=== PATIENT | female | born 1985 | race Caucasian/White ===

== ENCOUNTER 2019-09-22 21:20 | Emergency (ER) | payer OTHER ==
--- NOTE | 2019-09-22 23:22 | EDM.PDOC ---
ED HPI GENERAL MEDICAL PROBLEM - General Chief Complaint: Abdominal Pain Stated Complaint: lower left groin area pain Time Seen by Provider: 09/22/19 22:48 Source of Information: Reports: Patient, Family (Mother) History Limitations: Reports: No Limitations - History of Present Illness INITIAL COMMENTS - FREE TEXT/NARRATIVE: Ms. Verdugo is a pleasant 33-year-old woman with past medical history significant only for untreated dyslipidemia, who states that she developed left groin pain when she stood up around 20:00 this evening. The area is tender to palpation, and she believes that she feels something is swollen in there. She reports having chills and nausea tonight, but no recent fever, cough, chest pain , palpitations, vomiting, consultation, diarrhea, or urinary symptoms. No prior similar symptoms. The patient did not take any [id number] or home remedies prior to coming to the ED. The patient's PCP is Beatris Snyder NP. She did not receive an influenza vaccine this season, and declined an offer for one tonight. Treatments REHANGER: Reports: Other (see below) Other Treatments REHANGER: none Left Groin Pain Score (Numeric/FACES): 4 - Related Data Allergies Allergy/AdvReac Type Severity Reaction Status Date / Time amoxicillin Allergy Nausea Verified 09/22/19 21:34 Home Meds: Home Meds Oseltamivir [Tamiflu] 1 cap PO Q12H #7 cap 09/23/19 [Rx] Past Medical History Cardiovascular History: Reports: High Cholesterol (untreated) - Past Surgical History HEENT Surgical History: Reports: Oral Surgery (dental extractions) Female Surgical History: Reports: Section (x 1), D&C (x 1) Social & Family History - Tobacco Use Smoking Status *Q: Never Smoker - Caffeine Use Caffeine Use: Reports: Coffee, Soda - Alcohol Use Alcohol Use History: Yes Alcohol Use Frequency: Rarely - Recreational Drug Use Recreational Drug Use: No - Living Situation & Occupation Living situation: Reports: , with Spouse, with Family (4 kids) 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 ED EXAM, GENERAL - Physical Exam Exam: See Below Exam Limited By: No Limitations General Appearance: Alert, WD/WN, No Apparent Distress Eye Exam: Bilateral Eye: EOMI, Normal Inspection Ears: Normal External Exam, Hearing Grossly Normal Nose: Normal Inspection Throat/Mouth: Normal Inspection, Normal Lips, Normal Voice, No Airway Compromise Head: Atraumatic, Normocephalic Neck: Normal Inspection, Full Range of Motion Respiratory/Chest: No Respiratory Distress, Lungs Clear, Normal Breath Sounds, No Accessory Muscle Use Cardiovascular: Normal Peripheral Pulses, Regular Rate, Rhythm, No Edema, No Gallop, No JVD, No Murmur, No Rub Peripheral Pulses: 4+: Radial (L), Radial (R) GI/Abdominal: Normal Bowel Sounds, Soft, Non-Tender (including the LLQ), No Organomegaly, No Distention, No Abnormal Bruit, No Mass (Female) Exam: Deferred Rectal (Female) Exam: Deferred Back Exam: Normal Inspection, Full Range of Motion, NT Extremities: Normal Inspection, Normal Range of Motion, No Pedal Edema, Normal Capillary Refill, Other (Mild tenderness to palpation of the left proximal anterior thigh (groin), but only normal-sized inguinal lymph nodes palpated, no enlarged lymph nodes.) Neurological: Alert, Oriented, Normal Cognition, No Motor/Sensory Deficits Psychiatric: Normal Affect Skin Exam: Warm (feels febrile), Dry, Intact, Normal Color, No Rash Course - Vital Signs Last Recorded V/S: Last Vital Signs Temp 37.9 C 09/22/19 23:30 Pulse 103 H 09/22/19 21:36 Resp 20 09/22/19 21:36 BP 129/74 09/22/19 21:36 Pulse Ox 100 09/22/19 21:36 - Orders/Labs/Meds Labs: Laboratory Tests 09/22/19 Range/Units 22:00 Urine Color Leticia H (Yellow) Urine Appearance Slt cloudy H (Clear) Urine pH 6.0 (5.0-8.0) Ur Specific [place] > or = 1.030 (1.005-1.030) Urine Protein Negative (Negative) Urine Glucose (UA) Negative (Negative) Urine Ketones 1+ H (Negative) Urine Occult Blood Negative (Negative) Urine Nitrite Negative (Negative) Urine Bilirubin Negative (Negative) Urine Urobilinogen 1.0 (0.2-1.0) Ur Leukocyte Esterase Negative (Negative) Urine RBC 0-5 (0-5) /hpf Urine WBC 0-5 (0-5) /hpf Ur Squamous Epith Cells 10-20 H (0-5) /hpf Amorphous Sediment Few H (NOT SEEN) /hpf Urine Bacteria Moderate H (FEW) /hpf Urine Mucus Many H (FEW) /hpf Meds: Medications Discontinued Medications Generic Name Dose Route Start Last Admin Trade Name Cheryle PRN Reason Stop Dose Admin Oseltamivir Phosphate 225 mg 09/23/19 00:14 09/23/19 00:31 Tamiflu PO 09/23/19 00:15 225 mg ONETIME STA Administration - Re-Assessments/Exams Free Text/Narrative Re-Assessment/Exam: 09/22/19 23:18 I can feel a few normal-sized inguinal lymph nodes in the patient's left groin, and while she has some tenderness in the area, I do not suspect it is lymphatic. I suspect that her pain is due to a muscle or tendon strain. While I was examining the patient, however, I noticed that she felt warm. I had Carolynn BAHENA recheck her temperature, finding it to be up to 100.3 - it was 98.8 at triage. The patient has no obvious signs of an infection - no cough, dyspnea, abdominal pain, vomiting, diarrhea, or urinary symptoms, however, it is possible that the patient is now developing influenza, particularly since she was not vaccinated for influenza this season. I have therefore ordered an influenza swab. I do not see an indication for any other testing at this time. 09/23/19 00:16 Test results discussed with the patient and her mother. The patient's influenza swab has returned negative. Nevertheless, we'll proceed with treating the patient for influenza by starting her on Tamiflu. All pharmacies will be closed today, for , but we are expecting that all pharmacies will be open at their usual times on . The patient will be given 3 tablets of Tamiflu - one to take now, another one in the morning, and a third one in the evening. I will then submit a prescription for 3.5 days, for her to complete a 5-day course. Departure - Departure Time of Disposition: 00:18 Disposition: Home, Self-Care 01 Condition: Good Clinical Impression: Fever, Left groin pain - Discharge Information *PRESCRIPTION DRUG MONITORING PROGRAM REVIEWED*: Not Applicable *COPY OF PRESCRIPTION DRUG MONITORING REPORT IN PATIENT TIMOTHY: Not Applicable Prescriptions: Oseltamivir [Tamiflu] 1 cap PO Q12H #7 cap Instructions: Fever, Adult Referrals: Beatris Snyder NP [Primary Care Provider] - Forms: ED Department Discharge Additional Instructions: You were seen in the emergency room for left groin pain. On examination, you were felt to be developing a fever. Workup in the ER included an influenza swab, which returned negative, however, this does not necessarily mean that you do not have influenza. You have been started on the anti-influenza medicine Tamiflu, and 2 tablets have been sent home with you. Take one tablet in the morning, and the second tablet in the evening. A prescription for Tamiflu has been sent to the [facility], located at [address] [place] [address]. Take one tablet of Tamiflu every 12 hours, starting morning, 09/24/2019, as prescribed, in order to finish a five- day course. Take [id number] Tylenol or ibuprofen as needed to treat the discomfort of fever. Stay adequately hydrated. No abnormalities were found her left groin. The cause of your left groin pain is unclear. Follow-up with your PCP, Beatris Snyder NP, as needed. If any other problems, please do not hesitate to return to the ER. Sepsis Event Note - Evaluation Sepsis Screening Result: No Definite Risk - Focused Exam Date Exam was Performed: 09/23/19 Time Exam was Performed: 18:48
[2019-09-23] MEDS ORDERED: Oseltamivir 75 MG Cap PO STA (00:14)
== END 2019-09-23 00:30 | disposition home or self-care (01) ==
LOC: JD.ED 21:20
DX: R10.32 Left lower quadrant pain (principal); R50.9 Fever, unspecified; Z88.1 Allergy status to other antibiotic agents
CPT/HCPCS: 81001; 87804; 99283; A9270